=== PATIENT | male | born 1990 | race African-American/Black ===

== ENCOUNTER 2020-12-22 20:48 | Emergency (ER) | payer MEDICAID ==
[~2020-12-22] VITALS: Ht 162.6 cm; Wt 54.0 kg
[2020-12-22 21:41] VITALS: BP 111/58
[2020-12-23] MEDS ORDERED: AMOX-424 PO (01:56)
[2020-12-23] MEDS ORDERED: SULF1TAB48 PO (01:56)
[2020-12-23] MEDS ORDERED: IBUP-2029 PO (01:56)
== END 2020-12-23 01:00 | disposition home or self-care (01) ==
LOC: ER 20:48
DX: L02.31 Cutaneous abscess of buttock (principal); F12.10 Cannabis abuse, uncomplicated
CPT/HCPCS: 99283

== ENCOUNTER 2021-01-09 20:57 | Emergency (ER) | payer MEDICAID ==
[~2021-01-09] VITALS: Ht 162.6 cm; Wt 55.0 kg
[~2021-01-09 20:57] MED LIST: AMOX-424 PO; IBUP-2029 PO; SULF1TAB48 PO
[2021-01-09] MEDS ORDERED: SULFAMETHOXAZOLE/TRIMETHOPRIM 800/160MG TABLET PO ONE (22:45)
[2021-01-09] MEDS ORDERED: IBUPROFEN 400MG TABLET PO ONE (22:45)
[2021-01-09] MEDS ORDERED: ACETAMINOPHEN 325MG TABLET PO ONE (22:45)
[2021-01-09] MEDS ORDERED: SULF1TAB48 MT (22:54)
[2021-01-09] MEDS ORDERED: TOPUD MT (22:54)
[2021-01-09] MEDS ORDERED: NAPR-1176 MT (22:54)
[2021-01-09 23:02] VITALS: BP 105/58
== END 2021-01-10 00:01 | disposition home or self-care (01) ==
LOC: ER 20:57
DX: L02.31 Cutaneous abscess of buttock (principal)
CPT/HCPCS: 99284